=== PATIENT | male | born 1995 | race Hispanic/Latino ===

== ENCOUNTER 2022-07-13 17:53 | Emergency (ER) | payer SELFPAY ==
[~2022-07-13] VITALS: Ht 160 cm; Wt 80.2 kg
[2022-07-13 20:04] LABS: BASO % 0.5 % (0.0-1.0); EOS # 1.5 10^3/uL (0.0-0.5); EOS % 17.2 % (0.0-3.0); HEMATOCRIT 45.1 % (42.0-52.0); HEMOGLOBIN 15.4 g/dl (13.5-17.5); LYMPH # 2.8 10^3/uL (1.5-5.0); LYMPH % 33.2 % (24.0-44.0); MEAN CORPUSCULAR HEMOGLOBIN 30.4 pg (27.0-33.0); MEAN CORPUSCULAR HGB CONC 34.1 g/dl (32.0-36.5); MONO # 0.7 10^3/uL (0.0-0.8); MONO % 7.9 % (2.0-8.0); NEUTROPHILS # 3.5 10^3/uL (1.5-8.5); PLATELET COUNT, AUTOMATED 205 10^3/uL (150-450); RED BLOOD COUNT 5.07 10^6/uL (4.30-6.10); WHITE BLOOD COUNT 8.5 10^3/uL (4.0-10.0)
[2022-07-13 20:20] LABS: GC DNA AMPLIFICATION NEGATIVE (NEGATIVE)
[2022-07-13 20:27] LABS: BLOOD UREA NITROGEN 20 MG/DL (9-23); CARBON DIOXIDE LEVEL 26 MMOL/L (20-31); CHLORIDE LEVEL 106 MMOL/L (98-107); CREATININE FOR GFR 0.76 MG/DL (0.70-1.30); GLOMERULAR FILTRATION RATE > 60.0 (>60); GLUCOSE, FASTING 98 MG/DL (60-100); POTASSIUM SERUM 4.3 MMOL/L (3.5-5.1); SODIUM LEVEL 141 MMOL/L (136-145)
[2022-07-14] MEDS ORDERED: KETOROLAC 30 MG/ML 1ML VIAL IV ONE (06:05)
[2022-07-14] MEDS ORDERED: NS 1,000 ML IV ONE (06:05)
[2022-07-14 06:08] LABS: ALKALINE PHOSPHATASE 86 U/L (46-116); ALT/SGPT 20 U/L (7.0-40); AST/SGOT 17 U/L (<34); BILIRUBIN,DIRECT 0.1 MG/DL (<0.4); BILIRUBIN,TOTAL 0.4 MG/DL (0.3-1.2); TOTAL PROTEIN 7.2 G/DL (5.7-8.2)
[2022-07-14] MEDS ORDERED: ISOVUE-370 76% 100ML VIAL As Ordered ONE (06:10)
[2022-07-14 08:50] VITALS: BP 117/71
== END 2022-07-14 08:59 | disposition home or self-care (01) ==
LOC: M ED 17:53
DX: R10.9 Unspecified abdominal pain (principal); M54.50 Low back pain, unspecified; R11.10 Vomiting, unspecified
CPT/HCPCS: 74177; 80048; 80076; 81000; 81015; 85025; 87486; 87581; 87633; 87661; 87798; 87810; 87850; 96361; 96374; 99284; J1885